=== PATIENT | female | born 1965 | race Caucasian/White ===

== ENCOUNTER 2016-11-26 10:09 | Observation (INO) | payer BC ==
[~2016-11-26] VITALS: Ht 170.2 cm; Wt 74.7 kg
[2016-11-26 10:57] LABS: MCH 28.5 PG (29.0-34.0); MCHC 33.5 G/DL (30.0-36.0); MCV 85.1 FL (83-99); MEAN PLAT.VOLUME 14.6 uM^3 (9.5-12.4); PLATELET COUNT 118 K/uL (156-360); RBC DIS.WIDTH-CV 12.1 % (11.8-14.6); RBC DIS.WIDTH-SD 37.8 % (39-53); WHITE BLOOD COUNT 7.1 K/uL (4.1-10.2)
[2016-11-26 11:15] LABS: CHLORIDE 107 mEq/L (99-109); POTASSIUM 4.4 mEq/L (3.7-5.4); SODIUM 139 mEq/L (136-147)
[2016-11-26 11:16] LABS: GLUCOSE 104 mg/dL (70-99); TROP-I INTERPRETATION NEGATIVE; TROPONIN-I 0.03 ng/mL (0.0-0.30)
[2016-11-26 11:18] LABS: ANION GAP 7 MEQ/L (2-14)
[2016-11-26 11:20] LABS: GFR ESTIMATE (CALCULATED) > 59 mL/min/
[2016-11-26 11:21] LABS: UREA NITROGEN (BUN) 14 mg/dL (9-23)
[2016-11-26] MEDS ORDERED: SERTRALINE HCL25 MG PO (14:00)
[2016-11-26] MEDS ORDERED: DEXILANT60 MG PO (14:01)
[2016-11-26] MEDS ORDERED: CHEWABLE-VITE1 EACH PO (14:02)
[2016-11-26] MEDS ORDERED: FISH OIL 1,001000 M2 PO (14:02)
[2016-11-26 14:20] LABS: TROP-I INTERPRETATION NEGATIVE; TROPONIN-I 0.21 ng/mL (0.0-0.30)
[2016-11-26 14:37] LABS: TOTAL BILIRUBIN 0.1 mg/dL (0.0-1.0)
[2016-11-26 14:38] LABS: ALKALINE PHOSPHATASE 57 IU/L (3-129)
[2016-11-26 14:41] LABS: LIPASE 23 U/L (1.0-51.0)
[2016-11-26 15:35] LABS: DIRECT BILIRUBIN 0.1 mg/dL (0.0-0.3)
[2016-11-26 18:21] LABS: TROP-I INTERPRETATION NEGATIVE; TROPONIN-I 0.19 ng/mL (0.0-0.30)
[2016-11-26 21:29] VITALS: BP 126/69
[2016-11-27] VITALS: BP 126/72
[2016-11-27 00:06] LABS: TROP-I INTERPRETATION NEGATIVE; TROPONIN-I 0.12 ng/mL (0.0-0.30)
[2016-11-27 04:20] VITALS: BP 125/78
[2016-11-27 05:59] LABS: HDL CHOLESTEROL 43 MG/DL (Desirable>=50); LDL CHOLESTEROL 114 mg/dL (Desirable<100); NON-HDL CHOLESTEROL 140 mg/dL (Desirable<160); TOTAL CHOLESTEROL 183 mg/dL (Desirable<200); TRIGLYCERIDES 131 MG/DL (Normal: <150)
[2016-11-27 07:36] VITALS: BP 117/67
== END 2016-11-27 11:34 | disposition home or self-care (01) ==
LOC: EXP 10:09 → EME 10:09 → EDOF 19:33 → 5WEST 20:59
PROVIDERS: Hospitalist; Physician Assistant
DX: R07.89 Other chest pain (principal); R91.1 Solitary pulmonary nodule; K21.9 Gastro-esophageal reflux disease without esophagitis; K22.70 Barrett's esophagus without dysplasia; F41.9 Anxiety disorder, unspecified; Z87.891 Personal history of nicotine dependence; D69.3 Immune thrombocytopenic purpura; R94.31 Abnormal electrocardiogram [ECG] [EKG]
CPT/HCPCS: 70498; 71020; 71275; 80048; 80061; 80076; 83690; 84484; 85027; 93005; 99281; 99285; G0378; J7030

== ENCOUNTER 2016-12-21 09:13 | Emergency (ER) | payer BC ==
[~2016-12-21] VITALS: Ht 170.2 cm; Wt 73.8 kg
[~2016-12-21 09:13] MED LIST: CHEWABLE-VITE1 EACH PO; DEXILANT60 MG PO; FISH OIL 1,001000 M2 PO; SERTRALINE HCL25 MG PO
[2016-12-21] MEDS ORDERED: OSTEO BI-FLEX1 EAC1 PO (09:36)
[2016-12-21 10:19] LABS: HEMATOCRIT 38.4 % (36.0-46.0); MCH 29.2 PG (29.0-34.0); MCHC 34.6 G/DL (30.0-36.0); MCV 84.4 FL (83-99); MEAN PLAT.VOLUME 14.1 uM^3 (9.5-12.4); RBC DIS.WIDTH-CV 12.1 % (11.8-14.6); RBC DIS.WIDTH-SD 36.7 % (39-53); RED BLOOD COUNT 4.55 M/uL (3.80-5.20); WHITE BLOOD COUNT 7.3 K/uL (4.1-10.2)
[2016-12-21 10:26] LABS: PLATELET COUNT 128 K/uL (156-360)
[2016-12-21 10:31] LABS: CHLORIDE 108 mEq/L (99-109); POTASSIUM 4.8 mEq/L (3.7-5.4); SODIUM 140 mEq/L (136-147)
[2016-12-21 10:33] LABS: GLUCOSE 99 mg/dL (70-99)
[2016-12-21 10:34] LABS: ANION GAP 8 MEQ/L (2-14)
[2016-12-21 10:37] LABS: GFR ESTIMATE (CALCULATED) > 59 mL/min/
[2016-12-21 10:38] LABS: UREA NITROGEN (BUN) 11 mg/dL (9-23)
[2016-12-21 10:43] LABS: TROP-I INTERPRETATION NEGATIVE; TROPONIN-I 0.03 ng/mL (0.0-0.30)
[2016-12-21 12:48] LABS: TROP-I INTERPRETATION NEGATIVE; TROPONIN-I 0.04 ng/mL (0.0-0.30)
[2016-12-21 13:24] VITALS: BP 111/82
== END 2016-12-21 13:25 | disposition home or self-care (01) ==
LOC: EME 09:13
PROVIDERS: Emergency Medicine
DX: R07.9 Chest pain, unspecified (principal); Z87.891 Personal history of nicotine dependence; Z87.442 Personal history of urinary calculi
CPT/HCPCS: 71020; 80048; 84443; 84484; 85027; 93005; 99281; 99285

== ENCOUNTER 2017-01-28 11:01 | Day surgery (SDC) | payer BC ==
[~2017-01-28] VITALS: Ht 170.2 cm; Wt 72.6 kg
[~2017-01-28 11:01] MED LIST changes: +FIORICET,ESG1 TABLET PO; +MULTIPLE VITAM1 EAC1 PO; +OSTEO BI-FLEX1 EAC1 PO; +PROMETHAZINE HC25 M1 PO; +TROKENDI XR25 MG PO; +TROKENDI XR50 MG PO; +ZOLOFT25 MG PO
[2017-01-28 11:37] VITALS: BP 122/74
[2017-01-28] MEDS ORDERED: NORCO 5/3251 TABLET PO (14:28)
[2017-01-28 16:09] VITALS: BP 135/71
[2017-01-28 17:08] VITALS: BP 119/65
[2017-01-28 18:29] VITALS: BP 121/70
== END 2017-01-28 18:40 | disposition home or self-care (01) ==
LOC: SDC 11:01
PROC: 0FT44ZZ Resection of Gallbladder, Percutaneous Endoscopic Approach (ICD-10-PCS; principal; 2017-01-28)
DX: K80.10 Calculus of gallbladder with chronic cholecystitis without obstruction (principal); F41.9 Anxiety disorder, unspecified; K22.70 Barrett's esophagus without dysplasia; K21.0 Gastro-esophageal reflux disease with esophagitis; D69.3 Immune thrombocytopenic purpura; Z83.49 Family history of other endocrine, nutritional and metabolic diseases; Z83.511 Family history of glaucoma; Z82.49 Family history of ischemic heart disease and other diseases of the circulatory system; Z80.41 Family history of malignant neoplasm of ovary; Z82.5 Family history of asthma and other chronic lower respiratory diseases; Z87.891 Personal history of nicotine dependence
CPT/HCPCS: 88304; J0131; J0330; J1100; J1170; J1885; J2175; J2250; J2405; J2710; J3010

== ENCOUNTER 2017-01-31 14:21 | Emergency (ER) | payer BC ==
[~2017-01-31] VITALS: Ht 170.2 cm; Wt 71.7 kg
[~2017-01-31 14:21] MED LIST changes: +NORCO 5/3251 TABLET PO
[2017-01-31 15:35] LABS: HEMATOCRIT 37.8 % (36.0-46.0); MCH 29.5 PG (29.0-34.0); MCHC 34.9 G/DL (30.0-36.0); MCV 84.4 FL (83-99); MEAN PLAT.VOLUME 13.8 uM^3 (9.5-12.4); PLATELET COUNT 116 K/uL (156-360); RBC DIS.WIDTH-CV 12.4 % (11.8-14.6); RBC DIS.WIDTH-SD 37.2 % (39-53); RED BLOOD COUNT 4.48 M/uL (3.80-5.20); WHITE BLOOD COUNT 9.5 K/uL (4.1-10.2)
[2017-01-31 15:52] LABS: CHLORIDE 104 mEq/L (99-109); POTASSIUM 4.4 mEq/L (3.7-5.4); SODIUM 136 mEq/L (136-147)
[2017-01-31 15:54] LABS: GLUCOSE 122 mg/dL (70-99)
[2017-01-31 15:55] LABS: ANION GAP 6 MEQ/L (2-14)
[2017-01-31 15:56] LABS: TOTAL BILIRUBIN 0.5 mg/dL (0.0-1.0)
[2017-01-31 15:57] LABS: ALKALINE PHOSPHATASE 62 IU/L (3-129); GFR ESTIMATE (CALCULATED) > 59 mL/min/
[2017-01-31 15:58] LABS: QUANTITATIVE HCG < 4.0 MIU/ML; UREA NITROGEN (BUN) 9 mg/dL (9-23)
[2017-01-31 16:01] LABS: LIPASE 13 U/L (1.0-51.0)
[2017-01-31 19:12] LABS: ADD MIUA? NO; BILIRUBIN NEGATIVE; BLOOD NEGATIVE; COLOR YELLOW ((YELLOW)); GLUCOSE (STRIP) NEGATIVE; KETONES 5; LEUKOCYTES NEGATIVE; NITRITE NEGATIVE; PROTEIN (STRIP) NEGATIVE; SPECIFIC GRAVITY 1.032 (1.000-1.030); UCUL ADDED? NO; UROBILINOGEN 0.2 MG/DL (0.2-1.0)
[2017-01-31] MEDS ORDERED: FLEET ENEMA-AD118 ML PR (21:21)
[2017-01-31] MEDS ORDERED: MIRALAX255 GM PO (21:21)
[2017-01-31] MEDS ORDERED: ULTRAM50 MG PO (21:21)
[2017-01-31 22:31] VITALS: BP 150/71
== END 2017-01-31 22:32 | disposition home or self-care (01) ==
LOC: EME 14:21
DX: R10.9 Unspecified abdominal pain (principal); K21.9 Gastro-esophageal reflux disease without esophagitis; Z87.891 Personal history of nicotine dependence; Z87.442 Personal history of urinary calculi
CPT/HCPCS: 74177; 80053; 81003; 83690; 84702; 85027; 99281; 99285; J1630; J3010; J7030

== ENCOUNTER → 2017-02-25 | Outpatient (CLI) | payer BC ==
[~2017-02-25] MED LIST changes: +FLEET ENEMA-AD118 ML PR; +MIRALAX255 GM PO; +ULTRAM50 MG PO
[2017-02-25 13:38] LABS: INTER. NORMALIZED RATIO 1.2; PROTHROMBIN TIME 12.8 SEC (10.2-12.9)
[2017-02-25 13:40] LABS: PTT 31.6 SEC (25-37)
== END | disposition home or self-care (01) ==
LOC: OPR 12:50 → EDSTATUS 13:30 → OPR 13:30
PROVIDERS: Surgery
PROC: 0W9G3ZX Drainage of Peritoneal Cavity, Percutaneous Approach, Diagnostic (ICD-10-PCS; principal; 2017-02-25)
DX: T88.8XXA Other specified complications of surgical and medical care, not elsewhere classified, initial encounter (principal); Z90.49 Acquired absence of other specified parts of digestive tract; R10.13 Epigastric pain; Y83.6 Removal of other organ (partial) (total) as the cause of abnormal reaction of the patient, or of later complication, without mention of misadventure at the time of the procedure
CPT/HCPCS: 77012; 85610; 85730; 87070; 87075; 87205; J3010

== ENCOUNTER → 2017-03-01 | Outpatient (CLI) | payer BC | END | disposition home or self-care (01) | LOC: NUC 08:15 | DX: K91.89 Other postprocedural complications and disorders of digestive system (principal); Z90.49 Acquired absence of other specified parts of digestive tract | CPT/HCPCS: 78227; A9537 ==

== ENCOUNTER → 2017-03-07 | Outpatient (CLI) | payer BC ==
[~2017-03-07] VITALS: Ht 170.2 cm; Wt 72.6 kg
== END | disposition home or self-care (01) ==
LOC: AMB 10:30
PROC: 0F788DZ Dilation of Cystic Duct with Intraluminal Device, Via Natural or Artificial Opening Endoscopic (ICD-10-PCS; principal; 2017-03-07)
DX: K91.89 Other postprocedural complications and disorders of digestive system (principal); Z90.49 Acquired absence of other specified parts of digestive tract; K22.70 Barrett's esophagus without dysplasia; K21.9 Gastro-esophageal reflux disease without esophagitis; D69.3 Immune thrombocytopenic purpura; K58.9 Irritable bowel syndrome, unspecified
CPT/HCPCS: 74328; 87081; C1757; C1769; C2625; J0330; J1100; J1170; J2250; J2405; J3010